=== PATIENT | female | born 1965 | race American Indian/Alaskan Native ===

== ENCOUNTER 2022-01-02 07:33 | Emergency (ER) | payer OTHER ==
[2022-01-02] MEDS ORDERED: KETOROLAC 30 MG/1 ML INJ IV ONE (08:04)
[2022-01-02] MEDS ORDERED: ONDANSETRON 4 MG/2 ML INJ IV ONE (08:04)
[2022-01-02] MEDS ORDERED: MORPHINE 4 MG/1 ML INJ IV ONE (08:04)
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
[2022-01-02 08:43] VITALS: BP 159/76
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
== END 2022-01-02 11:53 | disposition home or self-care (01) ==
LOC: ED 07:33
DX: S40.012A Contusion of left shoulder, initial encounter (principal); M54.2 Cervicalgia; R07.89 Other chest pain; R51.9 Headache, unspecified; Z79.899 Other long term (current) drug therapy; V87.7XXA Person injured in collision between other specified motor vehicles (traffic), initial encounter; Y93.89 Activity, other specified; Y92.488 Other paved roadways as the place of occurrence of the external cause; Y99.8 Other external cause status
CPT/HCPCS: 70450; 71045; 72125; 73030; 96374; 96375; 99284; J1885; J2270; J2405